=== PATIENT | female | born 1985 | race American Indian/Alaskan Native ===

== ENCOUNTER 2019-12-14 11:48 | Emergency (ER) | payer BC, MEDICAID ==
[2019-12-14 12:21] VITALS: BP 117/62
[2019-12-14] MEDS ORDERED: KETOROLAC 30 MG/1 ML INJ IM ONE (14:32)
[2019-12-14] MEDS ORDERED: ONDANSETRON 4 MG/2 ML INJ IV ONE (14:48)
[2019-12-14] MEDS ORDERED: SODIUM CHLORIDE 0.9% 1000 ML 1,000 ML IV ONE (14:48)
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
[2019-12-14 15:12] LABS: Bacteria,Urine 1+ /HPF (Negative); Bilirubin,Urine NEG (Negative); Blood,Urine NEG (Negative); Color,Urine Yellow (Yellow); Mucus,Urine FEW /HPF; Protein,Urine <15 mg/dL mg/dL (Negative)
[2019-12-14 15:27] LABS: HCG Qualitative,Urine Negative (Negative)
--- NOTE | 2019-12-14 18:52 | Cat Scan Report ---
CT of the abdomen and pelvis without contrast INDICATION: Left flank pain today COMPARISON: None FINDINGS: Small cysts seen in the dome of the liver. Spleen, pancreas, adrenal glands and kidneys all appear normal. There are no calculi seen in either kidney. No hydronephrosis or perinephric edema. N o definite gallbladder or biliary tree abnormality. No fluid or adenopathy in the upper abdomen. CT of the pelvis shows no ureteral stones. No stone fragments seen in the bladder. Appendix is seen a nd is normal. No uterine or right adnexal masses. There is 2 cm cyst in the left ovary without free f luid. No diverticulosis or diverticulitis. Fixation screw is seen in the left anterior pelvis. No ing uinal hernia or bowel obstruction. IMPRESSION: Small left ovarian cyst without free fluid. No kidney stone or inflammatory process seen. Automated exposure control was utilized to diminish radiation dose. Signer Name: Sj Oseguera MD Signed: 12/14/2019 4:14 PM Workstation Name: [id number]
== END 2019-12-14 17:25 | disposition home or self-care (01) ==
LOC: ED 11:48
DX: N83.202 Unspecified ovarian cyst, left side (principal); R11.2 Nausea with vomiting, unspecified; J45.909 Unspecified asthma, uncomplicated; Z98.890 Other specified postprocedural states; Z79.1 Long term (current) use of non-steroidal anti-inflammatories (NSAID)
CPT/HCPCS: 74176; 81001; 81025; 96361; 96372; 96374; 99284; J1885; J2405; J7030